=== PATIENT | male | born 1970 | race Caucasian/White ===

== ENCOUNTER → 2016-08-30 | Outpatient (CLI) | payer MEDICAID | LOC: FIMAGING 07:10 | DX: S96.912A Strain of unspecified muscle and tendon at ankle and foot level, left foot, initial encounter (principal); M67.472 Ganglion, left ankle and foot; E11.8 Type 2 diabetes mellitus with unspecified complications; E35 Disorders of endocrine glands in diseases classified elsewhere; F20.0 Paranoid schizophrenia; F64.1 Dual role transvestism; F43.10 Post-traumatic stress disorder, unspecified; Z59.0 Homelessness; F17.290 Nicotine dependence, other tobacco product, uncomplicated ==

== ENCOUNTER 2018-03-03 | Emergency (ER) | payer MEDICAID | END 2018-03-03 18:16 | disposition home or self-care (01) ==

== ENCOUNTER 2018-08-04 19:19 | Emergency (ER) | payer MEDICAID ==
[2018-08-04] MEDS ORDERED: NS 1,000 ML IV ONE ×2 (19:47→20:45)
--- NOTE | 2018-08-04 20:01 | EDPHY ---
H & P Stated Complaint: Intermittent L Chest pain, SOB, dizziness x 2 days Time Seen by Provider: 08/04/18 19:36 HPI/ROS: 48 yo M presents with cough, shortness of breath, occasional left sided chest pain, dizziness and feels his sugars are running high. He states he has been taking his regular medicines and insulin. Review of systems As per HPI General no fever no chills no weakness HEENT no eye pain no eye discharge. No eye redness, no sore throat Respiratory positive cough, positive shortness of breath Cardiac positive chest pain, no peripheral edema GI no abdominal pain, no diarrhea, no constipation, no nausea, no vomiting no flank pain, no hematuria, no dysuria Musculoskeletal no myalgias, no joint pain Heme no easy bruising, no easy bleeding Endo no polyuria, no polydipsia Skin no rashes, no pruritus Neuro no syncope, positive dizziness, no headaches Psych hx of schizoaffective Source: Patient Exam Limitations: No limitations - Personal History Current Tetanus Diphtheria and Acellular Pertussis (TDAP): Yes Tetanus Vaccine Date: within 10 years - Medical/Surgical History Hx Asthma: No Hx Chronic Respiratory Disease: No Hx Diabetes: Yes Hx Cardiac Disease: No Hx Renal Disease: No Hx Cirrhosis: No Hx Alcoholism: No Hx HIV/AIDS: No Hx Splenectomy or Spleen Trauma: No Other PMH: DM type 2, depression, ruptured disk in neck, Wheel chair bound, L drop foot, urine incontinence, schizoaffective disorder. - Family History Significant Family History: No pertinent family hx - Social History Smoking Status: Current every day smoker Alcohol Use: Occasionally Drug Use: None - Physical Exam Exam: 48 yo M alert and oriented in nad, non o toxic appearance, afebrile, coarse cough, no tachypnea at.nc Atraumatic normocephalic anicteric Nares mild yellowish discharge Oropharynx mild erythema no tonsillar swelling no exudate no uvular deviation, tolerating own secretions Neck supple no lymphadenopathy Lungs clear to auscultation bilaterally Heart regular rate and rhythm Abdomen normoactive bowel sounds soft nontender Extremities no cyanosis clubbing or edema Skin no rash Constitutional: Initial Vital Signs Temperature (C) 36.9 C 08/04/18 19:26 Heart Rate 87 08/04/18 19:26 Respiratory Rate 16 08/04/18 19:26 Blood Pressure 121/77 H 08/04/18 19:26 O2 Sat (%) 96 08/04/18 19:26 O2 Delivery Mode Room Air Allergies/Adverse Reactions: Sulfa (Sulfonamide Antibiotics) [Sulfa(Sulfonamide Antibiotics)] Allergy ( Verified 08/04/18 19:27) Pt reports hives Home Medications: Medication Instructions Recorded HUMULIN R 03/01/18 Latuda 03/01/18 Metformin HCl 03/01/18 Wellbutrin Xl 03/01/18 oxyCODONE/APAP 5/325 [Percocet 03/01/18 5/325] Abilify 08/04/18 Depakote 08/04/18 Doxycycline Hyclate [Vibramycin 100 mg PO BID 10 Days #20 cap 08/04/18 100 MG (*)] Medical Decision Making - Diagnostics Imaging Results: Imaging Impressions Chest X-Ray 08/04/18 19:47 Impression: COPD/airways disease. No pneumonia. ED Course/Re-evaluation: pt seen and evaluated for cough, chest pain, sob, dizziness cxr likely copd, no infiltrate troponin neg dimer neg labs wnl except elevated blood sugar, no acidosis pt given 10 units human regular and 2 liters fluid also given a duoneb given one dose azithro 500 mg in ED Imp bronchitis Plan Home Doxycycline bid x 10 days f/u pcp Differential Diagnosis: Differential diagnosis considered but not limited to: Pneumonia, bronchitis, myocardial infarction, pleurisy, costochondritis, GERD - Data Points Laboratory Results: Laboratory Results 08/04/18 19:40 08/04/18 08/04/18 08/04/18 22:03 19:46 19:45 WBC RBC Hgb POC Hgb 13.3 gm/dL L gm/dL (13.7-17.5) Hct POC Hct 39 % L % (40-51) MCV MCH MCHC RDW Plt Count MPV Neut % (Auto) Lymph % (Auto) [place] % (Auto) Eos % (Auto) Baso % (Auto) Nucleat RBC Rel Count Absolute Neuts (auto) Absolute Lymphs (auto) Absolute Monos (auto) Absolute Eos (auto) Absolute Basos (auto) Absolute Nucleated RBC Immature Gran % Immature Gran # POC Sodium 138 mEq/L mEq/L 139 mEq/L mEq/L (135-145) (135-145) POC Potassium 2.9 mEq/L L mEq/L 3.3 mEq/L mEq/L (3.3-5.0) (3.3-5.0) POC Chloride 102 mEq/L mEq/L 106.0 mEq/L mEq/L (97-110) (97-110) POC Total CO2 23 mEq/L mEq/L (22-31) POC BUN 8 mg/dL mg/dL 7 mg/dL mg/dL (7-23) (7-23) POC Creatinine 0.5 mg/dL L mg/dL 0.7 mg/dL mg/dL (0.7-1.3) (0.7-1.3) POC Glucose 285 mg/dL H mg/dL 299 mg/dL H mg/dL (70-100) (70-100) POC Calcium 9.2 mg/dL mg/dL (8.5-10.4) POC Total Bilirubin 0.6 mg/dL mg/dL (0.1-1.4) POC AST 24 IU/L IU/L (17-59) POC ALT 22 IU/L IU/L (21-72) POC Alk Phosphatase 121 IU/L IU/L (38-126) POC Troponin I 0.00 ng/mL ng/mL (0.00-0.08) POC Total Protein 6.3 g/dL g/dL (6.3-8.2) POC Albumin 3.4 g/dL L g/dL (3.5-5.0) 08/04/18 19:40 WBC 7.83 10^3/uL 10^3/uL (3.80-9.50) RBC 5.12 10^6/uL 10^6/uL (4.40-6.38) Hgb 16.3 g/dL g/dL (13.7-17.5) POC Hgb Hct 45.9 % % (40.0-51.0) POC Hct MCV 89.6 fL fL (81.5-99.8) MCH 31.8 pg pg (27.9-34.1) MCHC 35.5 g/dL g/dL (32.4-36.7) RDW 12.6 % % (11.5-15.2) Plt Count 253 10^3/uL 10^3/uL (150-400) MPV 9.4 fL fL (8.7-11.7) Neut % (Auto) 61.1 % % (39.3-74.2) Lymph % (Auto) 29.5 % % (15.0-45.0) [place] % (Auto) 7.0 % % (4.5-13.0) Eos % (Auto) 1.5 % % (0.6-7.6) Baso % (Auto) 0.5 % % (0.3-1.7) Nucleat RBC Rel Count 0.0 % % (0.0-0.2) Absolute Neuts (auto) 4.78 10^3/uL 10^3/uL (1.70-6.50) Absolute Lymphs (auto) 2.31 10^3/uL 10^3/uL (1.00-3.00) Absolute Monos (auto) 0.55 10^3/uL 10^3/uL (0.30-0.80) Absolute Eos (auto) 0.12 10^3/uL 10^3/uL (0.03-0.40) Absolute Basos (auto) 0.04 10^3/uL 10^3/uL (0.02-0.10) Absolute Nucleated RBC 0.00 10^3/uL 10^3/uL (0-0.01) Immature Gran % 0.4 % % (0.0-1.1) Immature Gran # 0.03 10^3/uL 10^3/uL (0.00-0.10) POC Sodium POC Potassium POC Chloride POC Total CO2 POC BUN POC Creatinine POC Glucose POC Calcium POC Total Bilirubin POC AST POC ALT POC Alk Phosphatase POC Troponin I POC Total Protein POC Albumin Medications Given: Discontinued Medications Albuterol/Ipratropium (Duoneb) 3 ml IH EDNOW ONE Stop: 08/04/18 20:09 Last Admin: 08/04/18 20:15 Dose: 3 ml Azithromycin (Zithromax) 500 mg PO EDNOW ONE PRN Reason: Protocol Stop: 08/04/18 20:48 Last Admin: 08/04/18 20:49 Dose: 500 mg Sodium Chloride (Ns) 1,000 mls @ 0 mls/hr IV ONCE ONE PRN Reason: Wide Open Stop: 08/04/18 19:48 Last Admin: 08/04/18 19:51 Dose: 1,000 mls Sodium Chloride (Ns) 1,000 mls @ 0 mls/hr IV ONCE ONE PRN Reason: Wide Open Stop: 08/04/18 20:46 Last Admin: 08/04/18 20:49 Dose: 1,000 mls Insulin Aspart Prota 70%/Aspart 30% (Novolog Mix 70/30 Syringe) 10 units SC BIDAC MATEO Stop: 02/01/19 07:29 Last Admin: 08/04/18 20:20 Dose: Not Given Insulin Human Regular (Humulin R) 10 unit SC EDNOW ONE Stop: 08/04/18 20:13 Last Admin: 08/04/18 20:14 Dose: 10 units Point of Care Test Results: Chemistry 08/04/18 08/04/18 08/04/18 22:03 19:46 19:45 POC Sodium 138 mEq/L mEq/L 139 mEq/L mEq/L (135-145) (135-145) POC Potassium 2.9 mEq/L L mEq/L 3.3 mEq/L mEq/L (3.3-5.0) (3.3-5.0) POC Chloride 102 mEq/L mEq/L 106.0 mEq/L mEq/L (97-110) (97-110) POC Total CO2 23 mEq/L mEq/L (22-31) POC BUN 8 mg/dL mg/dL 7 mg/dL mg/dL (7-23) (7-23) POC Creatinine 0.5 mg/dL L mg/dL 0.7 mg/dL mg/dL (0.7-1.3) (0.7-1.3) POC Glucose 285 mg/dL H mg/dL 299 mg/dL H mg/dL (70-100) (70-100) POC Calcium 9.2 mg/dL mg/dL (8.5-10.4) POC Total Bilirubin 0.6 mg/dL mg/dL (0.1-1.4) POC AST 24 IU/L IU/L (17-59) POC ALT 22 IU/L IU/L (21-72) POC Alk Phosphatase 121 IU/L IU/L (38-126) POC Troponin I 0.00 ng/mL ng/mL (0.00-0.08) POC Total Protein 6.3 g/dL g/dL (6.3-8.2) POC Albumin 3.4 g/dL L g/dL (3.5-5.0) ISTAT H&H 08/04/18 22:03 POC Hgb 13.3 gm/dL L gm/dL (13.7-17.5) POC Hct 39 % L % (40-51) Comprehensive Metabolic Panel CMP Collection Date 08/04/18 CMP Collection Time 19:40 D-Dimer D-Dimer Collection Date 08/04/18 D-Dimer Collection Time 19:40 D-Dimer (ng/ml) < 100 Departure - Departure Disposition: Home, Routine, Self-Care Clinical Impression: Bronchitis Condition: Good Instructions: Acute Bronchitis (ED) Referrals: Carmen Lawrence [Primary Care Provider] - As per Instructions Prescriptions: Doxycycline Hyclate [Vibramycin 100 MG (*)] 100 mg PO BID 10 Days #20 cap
[2018-08-04] MEDS ORDERED: IPRATROPIUM/ALBUTEROL 3 ML DEYVIAL IH ONE (20:08)
[2018-08-04] MEDS ORDERED: INSULIN REGULAR HUMAN 100 UNIT/ML UNIT ONE (20:11)
[2018-08-04] MEDS ORDERED: INSULIN REGULAR HUMAN 100 UNIT/ML UNIT SC ONE (20:12)
[2018-08-04] MEDS ORDERED: AZITHROMYCIN 250 MG TAB PO ONE (20:47)
[2018-08-04 20:59] LABS: PLATELET COUNT 253 10^3/uL (150-400)
--- NOTE | 2018-08-04 21:12 | CPEKG ---
Test Reason : OPEN Blood Pressure : / mmHG Vent. Rate : 097 BPM Atrial Rate : 099 BPM P-R Int : 141 ms QRS Dur : 107 ms QT Int : 385 ms P-R-T Axes : 071 080 030 degrees QTc Int : 489 ms Sinus rhythm Minimal ST elevation, inferior leads Borderline prolonged QT interval Confirmed by Marianne Marcano ([id number]) on 08/04/2018 9:12:07 PM Referred By: Confirmed By:Marianne Marcano
[2018-08-04 22:26] VITALS: BP 116/66
[2018-08-05] MEDS ORDERED: INSULIN ASPART NovoLOG 70/30 100 UNITS/ML SYR SC SCH (07:30)
== END 2018-08-04 22:13 | disposition home or self-care (01) ==
LOC: CED 19:19
DX: J44.9 Chronic obstructive pulmonary disease, unspecified (principal); F25.9 Schizoaffective disorder, unspecified; E11.9 Type 2 diabetes mellitus without complications; F32.9 Major depressive disorder, single episode, unspecified; Z99.3 Dependence on wheelchair
CPT/HCPCS: 71046-PO; 80053-ER; 82435-PO; 82565-PO; 82947-PO; 84132-PO; 84295-PO; 84484-ER; 84520-PO; 85014-ER; 96360-ER; 96372-ER; J1815